=== PATIENT | female | born 1950 | race Caucasian/White ===

== ENCOUNTER 2016-05-01 13:54 | Outpatient (CLI) | payer OTHER ==
--- NOTE | 2016-05-01 16:37 | DIAGNOSTIC IMAGING REPORT ---
PROCEDURE: MG BILATERAL SCREENING W/CAD INDICATION: Screening, personal history of skin cancer. TECHNIQUE: Standard CC and MLO views bilaterally. Computer aided detection was used. COMPARISON: 09/12/2013, 01/14/2012, 04/17/2010 FINDINGS: Minimally dense fibrofatty tissue with dystrophic calcification is present bilaterally. Benign secretory calcifications are present occasionally in the right breast and central left breast. No developing densities, areas of architectural distortion, or suspicious microcalcifications. IMPRESSION: 1. Stable mammograms without radiographic evidence of malignancy. RESULT CODE: 2- Benign findings. A. A negative report should not delay biopsy if a dominant or clinically suspicious mass is present. 10-15% of cancers are not identified by x-ray. B. A negative report may reinforce clinical impression. C. Adenosis and dense breasts may obscure an underlying neoplasm. D. False positive reports average 6-10%. E.. A yearly screening mammogram is recommended. A reminder letter will be scheduled.
== END 2016-05-01 23:00 ==
LOC: MAM SRH 13:54
DX: Z12.31 Encounter for screening mammogram for malignant neoplasm of breast (principal); Z85.828 Personal history of other malignant neoplasm of skin

== ENCOUNTER 2016-07-07 15:00 | Outpatient (CLI) | payer OTHER ==
--- NOTE | 2016-07-07 16:01 | DIAGNOSTIC IMAGING REPORT ---
PROCEDURE: XR CHEST 2 VIEW INDICATION: COSTOCHONDRITIS TECHNIQUE: PA and lateral views. COMPARISON: None. FINDINGS: Lungs are clear. Heart and mediastinum are normal. Thorax is normal. IMPRESSION: 1. Negative chest.
== END 2016-07-07 23:00 ==
LOC: XR SRH 15:00
DX: M94.0 Chondrocostal junction syndrome [Tietze] (principal); Z79.01 Long term (current) use of anticoagulants; F32.9 Major depressive disorder, single episode, unspecified

== ENCOUNTER 2016-09-01 16:33 | Outpatient (CLI) | payer OTHER ==
--- NOTE | 2016-09-01 17:22 | DIAGNOSTIC IMAGING REPORT ---
PROCEDURE: XR WRIST MIN 3 VIEWS - LEFT INDICATION: WRIST PAIN TECHNIQUE: Four views of the left wrist. COMPARISON: None. FINDINGS: There is osteoarthritis involving the scaphoid trapezium and trapezoid joints. IMPRESSION: 1. Osteoarthritis of the Triscaphe joint
== END 2016-09-01 23:00 ==
LOC: XR SRH 16:33
DX: M19.032 Primary osteoarthritis, left wrist (principal)

== ENCOUNTER 2016-09-02 19:13 | Emergency (ER) | payer OTHER ==
--- NOTE | 2016-09-02 21:31 | DIAGNOSTIC IMAGING REPORT ---
PROCEDURE: XR WRIST MIN 3 VIEWS - LEFT INDICATION: PAIN TECHNIQUE: Four views of the left wrist. COMPARISON: 09/01/2016 FINDINGS: Normal mineralization. No fractures. Mild joint space loss at the scapho-trapezium and the scapho- trapezoid articulations. Mild subcortical sclerosis. Otherwise normal bony alignment. No unusual soft tissue calcifications or radiodense foreign bodies. IMPRESSION: 1. Intact left wrist. 2. Mild degenerative changes along the radial side of the intercarpal row.
--- NOTE | 2016-09-02 21:40 | ED ORDER SUMMARY ---
..... Patient: IGNACIO CRAIG OrderSheet [facility] VisitID: [id number] [place] [address] 66y, F Registration Date/Time: 09/02/2016 ORDER SHEET Weight: 76.6 kg (stated) Allergies: Sulfa Antibiotics GENERAL ORDERS: CBC w Diff Urgent (19:49 09/02/2016 EKoroleva P.A.-C) (20:04 JSanders R.N.) (Ack 20:07 RKaruga) BMP Urgent (19:49 09/02/2016 EKoroleva P.A.-C) (20:04 JSanders R.N.) (Ack 20:07 RKaruga) PCT (Procalcitonin) Urgent (19:49 09/02/2016 EKoroleva P.A.-C) (20:04 JSanders R.N.) (Ack 20:07 RKaruga) Lactate, Serum Urgent (19:49 09/02/2016 EKoroleva P.A.-C) (20:04 JSanders R.N.) (Ack 20:07 RKaruga) Sed Rate Urgent (19:49 09/02/2016 EKoroleva P.A.-C) (20:04 JSanders R.N.) (Ack 20:07 RKaruga) CRP Urgent (19:49 09/02/2016 EKoroleva P.A.-C) (20:04 JSanders R.N.) (Ack 20:07 RKaruga) Blood Culture (No) (N/A) Urgent (20:09 09/02/2016 EKoroleva P.A.-C) (Ack 20:18 RKaruga) (20:32 JSanders R.N.) Sed Rate Urgent (20:20 09/02/2016 EKoroleva P.A.-C) (Ack 20:23 RKaruga) (20:32 JSanders R.N.) (Cancelled: Other20:36 EKoroleva P.A.-C) CRP Urgent (20:20 09/02/2016 EKoroleva P.A.-C) (Ack 20:23 RKaruga) (20:32 JSanders R.N.) (Cancelled: Other20:36 EKoroleva P.A.-C) Wrist 3 or 4V Left Urgent (20:31 09/02/2016 EKoroleva P.A.-C) (20:46 JSanders R.N.) PT with INR Urgent (21:17 09/02/2016 EKoroleva P.A.-C) (Ack 21:31 RKaruga) (21:47 RCollier R.N.) PTT Urgent (21:17 09/02/2016 EKoroleva P.A.-C) (Ack 21:31 RKaruga) (21:48 RCollier R.N.) Splint (UE) (Left) (loose volar splint, for comfort only ) (21:41 09/02/2016 EKoroleva P.A.-C) (Ack 22:14 JSanders R.N.) (23:06 JSanders R.N.) Vitals (Pulse, BP, Resp Rate, Temp) (21:42 09/02/2016 EKoroleva P.A.-C) (21:47 RCollier R.N.) MEDICATION ORDERS: Phenergan IV 12.5 mg (HIGH ALERT MEDICATION, NOW) (22:44 09/02/2016 EKoroleva P.A.-C) (Ack 22:45 JSanders R.N.) (23:06 JSanders R.N.) IV FLUIDS: Dilaudid IV 1 mg (HIGH ALERT MEDICATION, NOW) (19:49 09/02/2016 EKoroleva P.A.-C) (Ack 19:50 JSanders R.N.) (20:16 JSanders R.N.) IV Saline Lock (19:49 09/02/2016 EKoroleva P.A.-C) (Ack 19:50 JSanders R.N.) (20:07 JSanders R.N.) Zofran IV 8 mg (NOW) (20:09 09/02/2016 EKoroleva P.A.-C) (20:16 JSanders R.N.) Vancomycin IV 2 gm/500 mL (NOW) (21:08 09/02/2016 EKoroleva P.A.-C) (Ack 21:11 JSanders R.N.) (21:45 JSanders R.N.) Dilaudid IV 1 mg (HIGH ALERT MEDICATION, NOW) (21:28 09/02/2016 EKoroleva P.A.-C) (Ack 21:32 JSanders R.N.) (21:46 JSanders R.N.) Ceftriaxone IV 2 gm/50mL (NOW) (21:39 09/02/2016 EKoroleva P.A.-C) (Ack 21:44 RCollier R.N.) Reglan IV 10 mg (NOW) (22:54 09/02/2016 EKoroleva P.A.-C) (Ack 23:07 JSanders R.N.) (Cancelled: Other0:02 JSanders R.N.) ORDER SHEET NOTES: [Electronically signed by Lucy Fisher P.A.-C (23:20 09/02/2016)] [Electronically signed by Meredith Gonzalez R.N. (01:30 09/03/2016)] [Electronically locked/signed by Meredith Gonzalez R.N. (:09/03/2016)]
--- NOTE | 2016-09-02 21:40 | ED ORDER SUMMARY ---
..... Patient: IGNACIO CRAIG OrderSheet [facility] VisitID: [id number] [place] [address] 66y, F Registration Date/Time: 09/02/2016 ORDER SHEET Weight: 76.6 kg (stated) Allergies: Sulfa Antibiotics GENERAL ORDERS: CBC w Diff Urgent (19:49 09/02/2016 EKoroleva P.A.-C) (20:04 JSanders R.N.) (Ack 20:07 RKaruga) BMP Urgent (19:49 09/02/2016 EKoroleva P.A.-C) (20:04 JSanders R.N.) (Ack 20:07 RKaruga) PCT (Procalcitonin) Urgent (19:49 09/02/2016 EKoroleva P.A.-C) (20:04 JSanders R.N.) (Ack 20:07 RKaruga) Lactate, Serum Urgent (19:49 09/02/2016 EKoroleva P.A.-C) (20:04 JSanders R.N.) (Ack 20:07 RKaruga) Sed Rate Urgent (19:49 09/02/2016 EKoroleva P.A.-C) (20:04 JSanders R.N.) (Ack 20:07 RKaruga) CRP Urgent (19:49 09/02/2016 EKoroleva P.A.-C) (20:04 JSanders R.N.) (Ack 20:07 RKaruga) Blood Culture (No) (N/A) Urgent (20:09 09/02/2016 EKoroleva P.A.-C) (Ack 20:18 RKaruga) (20:32 JSanders R.N.) Sed Rate Urgent (20:20 09/02/2016 EKoroleva P.A.-C) (Ack 20:23 RKaruga) (20:32 JSanders R.N.) (Cancelled: Other20:36 EKoroleva P.A.-C) CRP Urgent (20:20 09/02/2016 EKoroleva P.A.-C) (Ack 20:23 RKaruga) (20:32 JSanders R.N.) (Cancelled: Other20:36 EKoroleva P.A.-C) Wrist 3 or 4V Left Urgent (20:31 09/02/2016 EKoroleva P.A.-C) (20:46 JSanders R.N.) PT with INR Urgent (21:17 09/02/2016 EKoroleva P.A.-C) (Ack 21:31 RKaruga) (21:47 RCollier R.N.) PTT Urgent (21:17 09/02/2016 EKoroleva P.A.-C) (Ack 21:31 RKaruga) (21:48 RCollier R.N.) Splint (UE) (Left) (loose volar splint, for comfort only ) (21:41 09/02/2016 EKoroleva P.A.-C) (Ack 22:14 JSanders R.N.) (23:06 JSanders R.N.) Vitals (Pulse, BP, Resp Rate, Temp) (21:42 09/02/2016 EKoroleva P.A.-C) (21:47 RCollier R.N.) MEDICATION ORDERS: Phenergan IV 12.5 mg (HIGH ALERT MEDICATION, NOW) (22:44 09/02/2016 EKoroleva P.A.-C) (Ack 22:45 JSanders R.N.) (23:06 JSanders R.N.) IV FLUIDS: Dilaudid IV 1 mg (HIGH ALERT MEDICATION, NOW) (19:49 09/02/2016 EKoroleva P.A.-C) (Ack 19:50 JSanders R.N.) (20:16 JSanders R.N.) IV Saline Lock (19:49 09/02/2016 EKoroleva P.A.-C) (Ack 19:50 JSanders R.N.) (20:07 JSanders R.N.) Zofran IV 8 mg (NOW) (20:09 09/02/2016 EKoroleva P.A.-C) (20:16 JSanders R.N.) Vancomycin IV 2 gm/500 mL (NOW) (21:08 09/02/2016 EKoroleva P.A.-C) (Ack 21:11 JSanders R.N.) (21:45 JSanders R.N.) Dilaudid IV 1 mg (HIGH ALERT MEDICATION, NOW) (21:28 09/02/2016 EKoroleva P.A.-C) (Ack 21:32 JSanders R.N.) (21:46 JSanders R.N.) Ceftriaxone IV 2 gm/50mL (NOW) (21:39 09/02/2016 EKoroleva P.A.-C) (Ack 21:44 RCollier R.N.) Reglan IV 10 mg (NOW) (22:54 09/02/2016 EKoroleva P.A.-C) (Ack 23:07 JSanders R.N.) (Cancelled: Other0:02 JSanders R.N.) ORDER SHEET NOTES: [Electronically signed by Lucy Fisher P.A.-C (23:20 09/02/2016)] [Electronically signed by Meredith Gonzalez R.N. (01:30 09/03/2016)] [Electronically locked/signed by Meredith Gonzalez R.N. (:09/03/2016)]
--- NOTE | 2016-09-02 21:40 | ED CLINICAL REPORT ---
Clinical Report - Physicians/Mid Levels [facility] [address] [place] [address] 09/02/2016 19:12 Patient: IGNACIO CRAIG Time Seen: 19:50 Sep 02 2016. Arrived- By private vehicle. Historian- EMS personnel and family. HISTORY OF PRESENT ILLNESS Chief Complaint: Injury. (L. wrist pain). Occurred at home. This was not an incised wound, caused by a direct blow or a crush injury. Patient is experiencing severe pain. Patient denies injury to the head or neck. ( Pt woke up at 5 AM on Thursday, the with spontaneous pains of the left wrist , the pain is worsening. Patient was seen by her primary care provider on the 17h, xr was completed (neg per patient), however patient reports pain has continued to worsen. Denies any history of gout. He denies any known injury or trauma to her. Reports pain radiating into her hand, difficulty with movement. Pain worsen with movement. No h/o similar pain. No trauma, no recent over use.). REVIEW OF SYSTEMS The patient has had swelling, and weakness. No skin laceration. All systems otherwise negative, except as recorded above. PAST HISTORY The patient's dominant hand is the right. She has not had a prior injury to the same area. Problems: Knee Joint Instability. Fall. Diabetes Mellitus. Heart Disease. Leukocytosis. Ureterolithiasis. UTI - Urinary Tract Infection. Hypertension. Arthritis. Additional Surgeries: Appendectomy. Cystoscopy. Hysterectomy. Thyroid Surgery. Medications: Lisinopril Oral 5 mg, daily. Pioglitazone HCl Oral 15 mg, daily. Wellbutrin Oral. MetFORMIN HCl Oral 500 mg, 2x a day. Simvastatin Oral 40 mg, at bedtime. Vitamin c Oral 1000 mg, daily. Calcium Citrate Oral 500 mg, 2x daily. Coumadin Oral 8 mg, daily. Digoxin Oral 0.25 mg, daily. Fish Oil Oral (Capsule 1000 mg) 2x daily. Glucosamine HCl Oral (Tablet 500 mg), 2x daily. Latanoprost Ophthalmic 2.5 ml, nightly. Melatonin Oral (Tablet 3 mg), nightly. Allergies: Sulfa Antibiotics. SOCIAL HISTORY No alcohol use or drug use. ADDITIONAL NOTES The nursing notes have been reviewed. PHYSICAL EXAM Vital Signs: 09/02/2016 19:45 BP: 144/84. HR: 97. RR: 18. O2 saturation: 96%. Temp: 98.7 F. Pain level now: 10/26. Appearance: Alert. Appears to be in pain. Patient in moderate distress. Head: Head atraumatic. ENT: Nose normal. CVS: (irreg/ irreg). Respiratory: No respiratory distress. Breath sounds normal. Abdomen: No visible injury. Skin: Skin warm. Skin intact. (no breakdown of skin). Extremities: Signs of infection present. Left wrist. (radial dorsal surface tenderness). Left distal ulna: No tenderness or laceration. Left distal radius: erythema and moderate tenderness and swelling. Limited thumb movement secondary to pain and weakness (diminished flexion and extension). No ecchymosis or foreign body. Anatomic snuffbox, left arm: No tenderness or swelling. Dorsal left hand: of the proximal, central and radial aspect of the dorsal hand. Limited extension of the thumb secondary to pain and weakness. No tenderness or swelling. Left palm: No tenderness or swelling. Left thumb: erythema, tenderness and swelling; limited movement secondary to pain, weakness and swelling (diminished extension) (pain with extension at passive). Soft tissue tenderness present. No bony tenderness. (ns intact at each digit). Neuro, Vascular and Tendons: Vascular status intact. No pulse deficit present. Capillary refill not prolonged. Motor intact. Weakness. No functional tendon deficit or tendon injury seen. No sensory deficit. Neuro: Oriented X 3. LABS, X-RAYS, AND EKG Lt Wrist X-ray: (IMPRESSION: 1. Osteoarthritis of the Triscaphe joint Electronically Final signed by:Naldo Hawley MD 09/01/2016 5:23:30 PM). Laboratory Tests: ESR: (JESSICA: 09/02/2016 19:55) ( MsgRcvd 09/02/2016 21:43) Final results Test Result Flag Units (Reference) SED RATE WESTERGREN 7 mm/hr (0-30) CBC w Diff: (JESSICA: 09/02/2016 19:55) ( MsgRcvd 09/02/2016 20:27) Final results Test Result Flag Units (Reference) WHITE BLOOD COUNT 19.7 H K/uL (4.5-11.5) RED BLOOD COUNT 5.15 M/uL (4.00-5.20) HEMOGLOBIN 15.4 gm/dL (12.0-16.0) HEMATOCRIT 45.8 % (36.0-46.0) MEAN CELL VOLUME 89 fL (80-100) MEAN CORPUSCULAR HGB 30 pg (26-34) MEAN CORPUSCULAR HGB CONC 34 g/dL (31-37) RED CELL DISTRIBUTION WIDTH 13.2 % (11.6-14.8) PLATELET COUNT 260 K/uL (150-400) NEUTROPHIL % 90.5 H % (50-75) LYMPH % 6.6 L % (25-40) MONO % 2.4 L % (3-14) EOSINOPHIL % 0.4 % (0-4) BASOPHIL % 0.1 % (0-2) SED RATE WESTERGREN 12 mm/hr (0-30) PT with INR: (JESSICA: 09/02/2016 19:15) ( MsgRcvd 09/02/2016 21:41) Final results Test Result Flag Units (Reference) INR 2.2 H (0.8-1.2) Low Intensity Therapy: INR 1.5-2.0 PT range 18.5-23.1Mod.Intensity Therapy: INR 2.0-3.0 PT range 23.1-31.5High Intensity Therapy: INR 2.5-3.5 PT range 27.4-35.5High Intensity Therapy 2: INR 3.0-4.0 PT range 31.5-39.3 APTT 42 H SECONDS (24-34) Lactate, Serum: (JESSICA: 09/02/2016 20:10) ( [facility] Final results Test Result Flag Units (Reference) LACTIC ACID 0.9 mmol/L (0.4-2.0) [id number]: (JESSICA: 09/02/2016 19:55) ( MsgRcvd 09/02/2016 20:43) Final results Test Result Flag Units (Reference) PROCALCITONIN <0.5 ng/mL (0-0.5) PCT Concentration: Interpretation : Risk/option for action PCT <=0.5 ng/mL : Systemic : Low risk forinfection(sepsis): progression to severeis not likely. : systemic infection.Local bacterial : CAUTION-PCT levelsinfection is : below 0.5 ng/mL do notpossible. : exclude an infection,because localizedinfections (withoutsystemic signs) may beassociated with suchlow levels. If PCT ismeasured very earlyafter a bacterialchallenge (usually <6hours), these valuesmay still be low. Inthis case PCT shouldbe re-assessed 6-24hours later. PCT >0.5 and : Systemic infection: Moderate risk for<= 2 ng/mL : (sepsis) is : progression to severepossible, but : systemic infection.other conditions : The patient should beare known to : closely monitoredelevate PCT. : both clinically andby re-assessing PCTwithin 6-24 hours. PCT > 2 ng/mL : Systemic infection: High risk for(sepsis) is likely: progression to severeunless other : systemic infection.causes are known. : PCT >= 10 ng/mL : Important systemic: High likelihood ofinflammatory : severe sepsis orresponse, almost : septic shock.exclusively due to:severe bacterial :sepsis or septic :shock. : BMP: (JESSICA: 09/02/2016 19:55) ( MsgRcvd 09/02/2016 20:15) Final results Test Result Flag Units (Reference) GLUCOSE 160 H mg/dL (70-110) BUN 20 H mg/dL (7-18) CREATININE 0.7 mg/dL (0.6-1.3) Estimated GFR >60 mL/min Estimated GFR- >60 mL/min Note: Persistent reduction over 3 months in eGFR<60 mL/min/1.73 m2 defines CKD. Patients with eGFR values>=60 mL/min/1.73 m2 may also have CKD if evidence ofpersistent proteinuria. Additional information may be foundat www.kidney.org. SODIUM 136 mmol/L (136-145) POTASSIUM 4.1 mmol/L (3.5-5.1) CHLORIDE 101 mmol/L (98-107) CARBON DIOXIDE 26 mmol/L (21-32) CALCIUM 8.8 mg/dL (8.5-10.1) C-REACTIVE PROTEIN 0.7 mg/dL (0.0-0.9) . Note - Tests: (Repeat xr today: IMPRESSION: 1. Intact left wrist. 2. Mild degenerative changes along the radial side of the intercarpal row. Electronically Final signed by:Stephanie Decker MD 09/02/2016 9:31:08 PM). PROGRESS AND PROCEDURES PROCEDURES (volar, left wrist splint fiberglass for comfort, ns intact, completed by tech). Course of Care: patient with pain upon passive range of motion of her left thumb and index finger. Patient examined in the ER with DR. De Guzman (ER) who recommends ORTHO consult. Discussed case with DR. Zavala 20:58: ORTHO, who concerns him self with possible flexer tenosynovitis, early, given pain with extension, and held in flexion Discussed case with DR. Miner ([facility]), who accepts pt as a consult, with understanding that hospitalist will admit. [facility] who [facility] pt for [facility]. Pt reports last Hemoglobin a1c < 6. Pt in pain, improves with Dilauidid. Pt attended bathroom and developed n/v, given zofran. Pt given vancomycin 2 gm iv, and ceftriaxone 2 gm iv. Discussed plan of care with pt, understands plan. Bed updated received 23:10, will call for transfer. 09/02/2016 22:00 BP: 114/68. HR: 89. RR: 16. O2 saturation: 97%. Pain level now: 07/26. 09/02/2016 21:30 BP: 111/74. HR: 102. RR: 16. O2 saturation: 94%. Pain level now: 08/25. 09/02/2016 20:15 BP: 126/84. RR: 18. O2 saturation: 96%. 09/02/2016 20:00 BP: 132/89. RR: 18. O2 saturation: 96%. Patient is stable. Symptoms better. Patient/family counseled. Disposition: Transferred. CLINICAL IMPRESSION Chronic, well controlled type 2 diabetes. Left Wrist Infectious Tenosynovitis. (Electronically signed by Lucy Fisher P.A.-C 09/02/2016 23:20)
--- NOTE | 2016-09-02 21:40 | ED NURSING NOTES ---
Clinical Report - Nurses [facility] [address] [place] [address] 09/02/2016 19:12 [id number] Triage time 19:30 Sep 02 2016. Acuity: LEVEL 3. Chief Complaint: LEFT UPPER EXTREMITY PAIN. Location of symptoms- left shoulder. 19:37 09/02/16. SEPSIS SCREEN: Sepsis Screen. Negative (no infection suspected/documented). [place]ATT COMA SCORE: [place] Coma Scale: 15- eyes open spontaneously (4); best verbal response- oriented x 4 (5); best motor response- obeys commands (6). --19:37 Meredith Gonzalez R.N. 19:45 09/02/16. BP: 144/84 (regular adult cuff) taken on the right arm, while sitting. HR: 97. RR: 18. O2 saturation: 96% on room air. Temp: 98.7 F (oral). Pain level now: 10/26. --19:46 Meredith Gonzalez R.N. Weight: 76.6 kg stated. Height/Length: 66 inches Per Patient. BMI: 27.3. --19:45 Meredith Gonzalez R.N. Medications Calcium Citrate Oral 500 mg, 2x daily. Coumadin Oral 8 mg, daily. Digoxin Oral 0.25 mg, daily. Fish Oil Oral (Capsule 1000 mg) 2x daily. Glucosamine HCl Oral (Tablet 500 mg), 2x daily. Latanoprost Ophthalmic 2.5 ml, nightly. Melatonin Oral (Tablet 3 mg), nightly. --19:34 Meredith Gonzalez R.N. MetFORMIN HCl Oral 500 mg, 2x a day. Simvastatin Oral 40 mg, at bedtime. Vitamin c Oral 1000 mg, daily. --19:34 Meredith Gonzalez R.N. Wellbutrin Oral. --19:46 Meredith Gonzalez R.N. Pioglitazone HCl Oral 15 mg, daily. --19:46 Meredith Gonzalez R.N. Lisinopril Oral 5 mg, daily. --19:46 Meredith Gonzalez R.N. Allergies Sulfa Antibiotics. --19:34 Meredith Gonzalez R.N. History Arrived by private vehicle. Historian: patient. Accompanied by family. No injury occurred. This occurred (Thursday). She has had swelling. Treatment MEDICAL TECHNICIANS: Ice. PAST MEDICAL HX: Diabetes mellitus. Hypertension. The patient is post-menopausal. SOCIAL HX: Smoker- current status unknown. No alcohol use or drug use. No infectious disease exposure. ABUSE ASSESSMENT: No report of abuse. SELF HARM ASSESSMENT: A self harm assessment was performed. The patient answered "no" to the question "Do you have thoughts of harming or killing yourself?" and "Have you recently had thoughts about harming or killing others?". --19:37 Meredith Gonzalez R.N. Primary physician (Dr Flynn). --21:43 Meredith Gonzalez R.N. PROBLEMS: Knee Joint Instability. Fall. Diabetes Mellitus. Heart Disease. Leukocytosis. Ureterolithiasis. UTI - Urinary Tract Infection. Hypertension. Arthritis. --19:34 Meredith Gonzalez R.N. ADDITIONAL SURGERIES: Appendectomy. Cystoscopy. Hysterectomy. Thyroid Surgery. --19:34 Meredith Gonzalez R.N. Interventions ID band on patient. To treatment room. --19:37 Meredith Gonzalez R.N. PHYSICAL ASSESSMENT late entry - 19:37 09/02/16. Ambulatory to room. Patient gowned. GENERAL / NEURO / PSYCH: Oriented X 4. Alert. Appears in no acute distress. Appears in pain. EXTREMITIES: Limited ROM present. Upper extremity edema. Left wrist: tenderness. Limited ROM secondary to pain (diminished flexion and extension, ulnar deviation and radial deviation). SKIN: Skin intact. Skin is warm and dry. --20:32 Meredith Gonzalez R.N. <<STRICKEN ENTRY-- 19:37 09/02/16. Ambulatory to room. GENERAL / NEURO / PSYCH: Oriented X 4. Alert. Appears in no acute distress. Appears in pain. EXTREMITIES: Limited ROM present. No upper extremity edema. Left shoulder: tenderness. Limited ROM due to pain (diminished abduction, adduction, flexion, extension and internal rotation). SKIN: Skin intact. Skin is warm and dry. --19:37 Meredith Gonzalez R.N. --END STRIKE>> Correction --20:32 Meredith Gonzalez R.N. NURSING PROGRESS NOTES 19:38 09/02/16. The plan of care for this patient has been created. Patient gowned. Reassurance given. Two patient identifiers checked. Call light placed in reach. Side rails up x 1. Bed placed in lowest position. Brakes of bed on. Patient ready for evaluation- chart flagged and ED physician notified. --19:38 Meredith Gonzalez R.N. late entry - 19:45 09/02/16. ( Patient given warm blanket for comfort measures). --20:43 Meredith Gonzalez R.N. 19:55 09/02/2016 Site #1 started via IV in the right antecubital space with an 20g angiocath, with aseptic technique and good blood return; one attempt. Blood drawn: rainbow set. Labeled in the presence of the patient and sent to the lab. Saline lock flushed with 10 mL saline. --20:07 Meredith Gonzalez R.N. 20:06 09/02/2016 Dilaudid (HYDROmorphone HCl PF) IVP 1 mg given over 3 minute(s) via site #1. Allergies verified, confirmed 5 rights and sedative warning given to the patient. IV patency established. IV site checked: no pain, redness, or swelling. IV flushed thoroughly pre- and post-medication administration. IVP given by RN. --20:16 Meredith Gonzalez R.N. 20:16 09/02/2016 Zofran (Ondansetron HCl) IVP 4 mg given over 1 minute(s) via site #1. Allergies verified and confirmed 5 rights. IV patency established. IV site checked: no pain, redness, or swelling. IV flushed thoroughly pre- and post-medication administration. IVP given by RN. --20:16 Meredith Gonzalez R.N. 20:42 09/02/16. ( Xray in with patient). --20:43 Meredith Gonzalez R.N. 20:00 09/02/16. BP: 132/89 (regular adult cuff) taken on the right arm, while sitting. RR: 18. O2 saturation: 96% on room air. --20:45 Meredith Gonzalez R.N. 20:15 09/02/16. BP: 126/84 (regular adult cuff) taken on the right arm, while sitting. RR: 18. O2 saturation: 96%. --20:45 Meredith Gonzalez R.N. 20:30 09/02/16. BP: 127/75 (regular adult cuff) taken on the right arm, while sitting. RR: 18. O2 saturation: 93%. --20:46 Meredith Gonzalez R.N. 20:46 09/02/16. ( Xray finished with patient). --20:46 Meredith Gonzalez R.N. 21:31 09/02/2016 Dilaudid (HYDROmorphone HCl PF) IVP 1 mg given over 3 minute(s) via site #1. Allergies verified, confirmed 5 rights and sedative warning given to the patient and patient's family. IV patency established. IV site checked: no pain, redness, or swelling. IV flushed thoroughly pre- and post-medication administration. IVP given by RN. --21:46 Meredith Gonzalez R.N. 21:35 09/02/2016 Started 2 gm of Vancomycin IVPB in bag #1 500 mL; at 270 mL/hr over 2 hour(s) via site #1 via IV pump. Allergies verified and confirmed 5 rights. IV patency established. IV site checked: no pain, redness, or swelling. IV flushed thoroughly pre- and post-medication administration. --21:45 Meredith Gonzalez R.N. 21:30 09/02/16. BP: 111/74 (regular adult cuff) taken on the right arm, while sitting. HR: 102. RR: 16. O2 saturation: 94% on room air. Pain level now: 08/25. --21:47 Meredith Gonzalez R.N. 21:45 09/02/16. BP: 115/74 (regular adult cuff) taken on the right arm, while sitting. HR: 80. RR: 16. O2 saturation: 97% on room air. --22:22 Meredith Gonzalez R.N. 22:00 09/02/16. BP: 114/68 (regular adult cuff) taken on the right arm, while sitting. HR: 89. RR: 16. O2 saturation: 97%. Pain level now: 07/26. --22:23 Meredith Gonzalez R.N. 22:24 09/02/16. ( Checked on patient, she understands she will be [facility] [place], answered all pertinent questions to this and she states understanding to NPO status). --22:24 Meredith Gonzalez R.N. 22:54 09/02/16. ( Patient up to use the restroom, when she was in there she started to get nauseous, started vomiting and became diaphoretic. Ambulated back to her room still nauseous and diaphoretic, she sat on side of bed, temp was 98.1 F and BP 112/71). --22:54 Meredith Gonzalez R.N. 23:01 09/02/2016 PHENERGAN (Promethazine HCl) IVP 12.5 mg given over 5 minute(s) via site #1. Allergies verified and confirmed 5 rights. IV patency established. IV site checked: no pain, redness, or swelling. IV flushed thoroughly pre- and post-medication administration. IVP given by RN. --23:06 Meredith Gonzalez R.N. ( Patient doing better after Phenagren given and cold washcloth around neck). --23:07 Meredith Gonzalez R.N. 23:27 09/02/16. ( Patient doing much better, signed her paperwork for transfer, nausea 05/26 and pain 05/26.). --23:27 Meredith Gonzalez R.N. 23:33 09/02/16. BP: 110/89 (regular adult cuff) taken on the right arm, while sitting. HR: 91. RR: 16. O2 saturation: 94% on room air. Pain level now: 05/26. --23:33 Meredith Gonzalez R.N. late entry - 23:10. Volar fiberglass upper extremity splint applied to left wrist and hand by tech. Distal pulses intact, sensation intact and motor within normal limits. --23:35 Jessica Mac 00:05 09/03/2016 Site #2 started via IV in the right hand with an 20g angiocath, with aseptic technique and good blood return; one attempt. Saline lock flushed with 10 mL saline. --00:06 Araceli Mast R.N. 00:05 09/03/2016 Vancomycin IVPB Discontinued: bag #1 infused. Total amount infused: 500 mL. IV patency established. IV site checked: no pain, redness, or swelling. IV flushed thoroughly. --00:05 Araceli Mast R.N. DISPOSITION / DISCHARGE 23:32 09/02/16. Transported via ambulance by EMS with IV. Bed obtained and ready (23:28 Sep 02 2016). Patient and daughter notified of admission. ( Patient being transferred to [facility], 3SW room 312). Patient's personal items include: shirt, pants, undergarments, shoes, glasses, purse, wallet and cell phone; items were placed in belongings bag, given to the patient and transported with the patient. She did not have dress, skirt, coat, pajamas or socks. She did not have hat, contacts, dentures or a hearing aid or pager. She did not have jewelry. --23:32 Meredith Gonzalez R.N. 00:03 09/03/16. ( EMS requested another IV start for ceftriaxone). --00:04 Meredith Gonzalez R.N. 00:04 09/03/16. BP: 100/59 (regular adult cuff) taken on the right arm, while sitting. HR: 95. RR: 16. O2 saturation: 97% on room air. Temp: 97.6 F (oral). Pain level now: 04/25. --00:04 Meredith Gonzalez R.N. Departure time: 00:15. --00:15 Araceli Mast R.N. Departure time: 00:16 Sep 03 2016. --00:16 Meredith Gonzalez R.N. Locked/Released at 09/03/2016 1:30 by Meredith Gonzalez R.N.
--- NOTE | 2016-09-03 01:31 | ED MAR SUMMARY ---
..... Medication Administration Record [facility] [address] [place] [place] [address] Patient: IGNACIO CRAIG Visit ID: [id number] 66y, F Weight: 76.6 kg Height/Length: 66 in BMI: 27.3 ALLERGIES: Sulfa Antibiotics Given 20:06 09/02/2016 Meredith Gonzalez R.N. Medication Administered: DILAUDID [IVP] (HYDROMORPHONE HCL PF), Dose: 1 mg IVP over 3 minute(s), Site: #1 right AC. Medication Ordered: Dilaudid IV 1 mg (HIGH ALERT MEDICATION, NOW). Given 20:16 09/02/2016 Meredith Gonzalez R.N. Medication Administered: ZOFRAN [IVP] (ONDANSETRON HCL), Dose: 4 mg IVP over 1 minute(s), Site: #1 right AC. Medication Ordered: Zofran IV 8 mg (NOW). Given 21:31 09/02/2016 Meredith Gonzalez R.N. Medication Administered: DILAUDID [IVP] (HYDROMORPHONE HCL PF), Dose: 1 mg IVP over 3 minute(s), Site: #1 right AC. Medication Ordered: Dilaudid IV 1 mg (HIGH ALERT MEDICATION, NOW). Start 21:35 09/02/2016 Meredith Gonzalez R.N., Stop 00:05 09/03/2016 Araceli Mast R.N. Medication Administered: VANCOMYCIN [IVPB], Dose: 2 gm IVPB over 2 hour(s), Rate: 270 mL/hr, Dispensed: 500 mL bag, Site: #1 right AC. Medication Ordered: Vancomycin IV 2 gm/500 mL (NOW). Given 23:01 09/02/2016 Meredith Gonzalez R.N. Medication Administered: PHENERGAN [IVP] (PROMETHAZINE HCL), Dose: 12.5 mg IVP over 5 minute(s), Site: #1 right AC. Medication Ordered: Phenergan IV 12.5 mg (HIGH ALERT MEDICATION, NOW).
--- NOTE | 2016-09-03 01:31 | ED DISCHARGE INSTRUCTIONS ---
Patient: IGNACIO CRAIG General Instructions [facility] VisitID: [id number] [address] [place] [address] 66y, F Registration Date/Time: 09/02/2016 Chronic, well controlled type 2 diabetes. Left Wrist Infectious Tenosynovitis. (Electronically signed by Lucy Fisher P.A.-C 09/02/2016 23:20)
--- NOTE | 2016-09-03 01:31 | ED MAR SUMMARY ---
..... Medication Administration Record [facility] [address] [place] [place] [address] Patient: IGNACIO CRAIG Visit ID: [id number] 66y, F Weight: 76.6 kg Height/Length: 66 in BMI: 27.3 ALLERGIES: Sulfa Antibiotics Given 20:06 09/02/2016 Meredith Gonzalez R.N. Medication Administered: DILAUDID [IVP] (HYDROMORPHONE HCL PF), Dose: 1 mg IVP over 3 minute(s), Site: #1 right AC. Medication Ordered: Dilaudid IV 1 mg (HIGH ALERT MEDICATION, NOW). Given 20:16 09/02/2016 Meredith Gonzalez R.N. Medication Administered: ZOFRAN [IVP] (ONDANSETRON HCL), Dose: 4 mg IVP over 1 minute(s), Site: #1 right AC. Medication Ordered: Zofran IV 8 mg (NOW). Given 21:31 09/02/2016 Meredith Gonzalez R.N. Medication Administered: DILAUDID [IVP] (HYDROMORPHONE HCL PF), Dose: 1 mg IVP over 3 minute(s), Site: #1 right AC. Medication Ordered: Dilaudid IV 1 mg (HIGH ALERT MEDICATION, NOW). Start 21:35 09/02/2016 Meredith Gonzalez R.N., Stop 00:05 09/03/2016 Araceli Mast R.N. Medication Administered: VANCOMYCIN [IVPB], Dose: 2 gm IVPB over 2 hour(s), Rate: 270 mL/hr, Dispensed: 500 mL bag, Site: #1 right AC. Medication Ordered: Vancomycin IV 2 gm/500 mL (NOW). Given 23:01 09/02/2016 Meredith Gonzalez R.N. Medication Administered: PHENERGAN [IVP] (PROMETHAZINE HCL), Dose: 12.5 mg IVP over 5 minute(s), Site: #1 right AC. Medication Ordered: Phenergan IV 12.5 mg (HIGH ALERT MEDICATION, NOW).
--- NOTE | 2016-09-03 01:31 | ED MED RECONCILIATION SUMMARY ---
Patient: IGNACIO CRAIG Medication Reconciliation Report [facility] VisitID: [id number] [address] [place] [address] 66y, F Registration Date/Time: 09/02/2016 Weight: 76.6 kg Height/Length: 66 in. BMI: 27.3 ALLERGIES: Sulfa Antibiotics The patient's Home Medications are listed below: THE FOLLOWING MEDICATIONS NEED TO BE RECONCILED: Calcium Citrate Oral 500 mg, 2x daily Coumadin Oral 8 mg, daily Digoxin Oral 0.25 mg, daily Fish Oil Oral (1000 mg) 2x daily Glucosamine HCl Oral (500 mg), 2x daily Latanoprost Ophthalmic 2.5 ml, nightly Lisinopril Oral 5 mg, daily Melatonin Oral (3 mg), nightly MetFORMIN HCl Oral 500 mg, 2x a day Pioglitazone HCl Oral 15 mg, daily Simvastatin Oral 40 mg, at bedtime Vitamin c Oral 1000 mg, daily Wellbutrin Oral The source(s) of the original Home Medication information: Not obtained. The following Medications were given to the patient in the Emergency Department: Dilaudid [IVP] IVP 1 mg, administered: 09/02/2016 8:06:00 PM Zofran [IVP] IVP 4 mg, administered: 09/02/2016 8:16:00 PM Vancomycin [IVPB] IVPB bolus 0, then 2 gm 270 mL/hr, administered: 09/02/2016 9:35:00 PM Dilaudid [IVP] IVP 1 mg, administered: 09/02/2016 9:31:00 PM PHENERGAN [IVP] IVP 12.5 mg, administered: 09/02/2016 11:01:00 PM The following Medications were prescribed to the patient: None.
--- NOTE | 2016-09-03 01:31 | ED MED RECONCILIATION SUMMARY ---
Patient: IGNACIO CRAIG Medication Reconciliation Report [facility] VisitID: [id number] [address] [place] [address] 66y, F Registration Date/Time: 09/02/2016 Weight: 76.6 kg Height/Length: 66 in. BMI: 27.3 ALLERGIES: Sulfa Antibiotics The patient's Home Medications are listed below: THE FOLLOWING MEDICATIONS NEED TO BE RECONCILED: Calcium Citrate Oral 500 mg, 2x daily Coumadin Oral 8 mg, daily Digoxin Oral 0.25 mg, daily Fish Oil Oral (1000 mg) 2x daily Glucosamine HCl Oral (500 mg), 2x daily Latanoprost Ophthalmic 2.5 ml, nightly Lisinopril Oral 5 mg, daily Melatonin Oral (3 mg), nightly MetFORMIN HCl Oral 500 mg, 2x a day Pioglitazone HCl Oral 15 mg, daily Simvastatin Oral 40 mg, at bedtime Vitamin c Oral 1000 mg, daily Wellbutrin Oral The source(s) of the original Home Medication information: Not obtained. The following Medications were given to the patient in the Emergency Department: Dilaudid [IVP] IVP 1 mg, administered: 09/02/2016 8:06:00 PM Zofran [IVP] IVP 4 mg, administered: 09/02/2016 8:16:00 PM Vancomycin [IVPB] IVPB bolus 0, then 2 gm 270 mL/hr, administered: 09/02/2016 9:35:00 PM Dilaudid [IVP] IVP 1 mg, administered: 09/02/2016 9:31:00 PM PHENERGAN [IVP] IVP 12.5 mg, administered: 09/02/2016 11:01:00 PM The following Medications were prescribed to the patient: None.
--- NOTE | 2016-09-03 01:31 | ED DISCHARGE INSTRUCTIONS ---
Patient: IGNACIO CRAIG General Instructions [facility] VisitID: [id number] [address] [place] [address] 66y, F Registration Date/Time: 09/02/2016 Chronic, well controlled type 2 diabetes. Left Wrist Infectious Tenosynovitis. (Electronically signed by Lucy Fisher P.A.-C 09/02/2016 23:20)
== END 2016-09-03 00:15 | disposition short-term general hospital (02) ==
LOC: ED SRH 19:13
DX: M65.132 Other infective (teno)synovitis, left wrist (principal); E11.9 Type 2 diabetes mellitus without complications; I10 Essential (primary) hypertension; Z79.84 Long term (current) use of oral hypoglycemic drugs; Z79.01 Long term (current) use of anticoagulants; Z79.899 Other long term (current) drug therapy; Z88.2 Allergy status to sulfonamides